=== PATIENT | female | born 1990 | race Caucasian/White ===

== ENCOUNTER → 2016-12-27 | Outpatient (CLI) | payer OTHER | LOC: HEART 5 12-10 09:00 | DX: R00.2 Palpitations (principal) ==

== ENCOUNTER 2021-03-12 05:30 | Inpatient (IN) | payer OTHER ==
[~2021-03-12] VITALS: Ht 162.6 cm; Wt 86.2 kg
[~2021-03-12 05:30] MED LIST: IBUPROFEN600 MG PO; TAMIFLU75 MG PO
[2021-03-12 07:02] LABS: HEMOGLOBIN 7.7 gm/dl (12.3-15.3); RED BLOOD COUNT 3.22 M/UL (4.00-5.10); WHITE BLOOD COUNT 6.3 K/UL (4.5-11.0)
[2021-03-12] MEDS ORDERED: IBUPROFEN600 MG PO (15:45)
[2021-03-12] MEDS ORDERED: DOCUSATE SODIU100 MG PO (15:45)
[2021-03-13] MEDS ORDERED: FERROUS SULFAT325 MG PO (09:59)
== END 2021-03-13 12:02 | disposition home or self-care (01) | DRG 806 ==
LOC: OB 05:30
PROVIDERS: Obstetrics & Gynecology; ADMIT Obstetrics & Gynecology
PROC: 10E0XZZ Delivery of Products of Conception, External Approach (ICD-10-PCS; principal; 2021-03-12)
PROC: 3E033VJ Introduction of Other Hormone into Peripheral Vein, Percutaneous Approach (ICD-10-PCS; 2021-03-12)
PROC: 0HQ9XZZ Repair Perineum Skin, External Approach (ICD-10-PCS; 2021-03-12)
PROC: 10907ZC Drainage of Amniotic Fluid, Therapeutic from Products of Conception, Via Natural or Artificial Opening (ICD-10-PCS; 2021-03-12)
PROC: 4A1HXCZ Monitoring of Products of Conception, Cardiac Rate, External Approach (ICD-10-PCS; 2021-03-12)
DX: O99.02 Anemia complicating childbirth (principal); N13.30 Unspecified hydronephrosis; Z37.0 Single live birth; Z3A.39 39 weeks gestation of pregnancy; O99.344 Other mental disorders complicating childbirth; F32.9 Major depressive disorder, single episode, unspecified; O99.892 Other specified diseases and conditions complicating childbirth; F41.9 Anxiety disorder, unspecified; O69.81X0 Labor and delivery complicated by cord around neck, without compression, not applicable or unspecified; O62.2 Other uterine inertia; Z20.822 Contact with and (suspected) exposure to COVID-19; O70.0 First degree perineal laceration during delivery; O76 Abnormality in fetal heart rate and rhythm complicating labor and delivery
CPT/HCPCS: 36415; 51702; 82800; 85014; 85018; 85025; 90471; 90707; 90715; J2210; J2590; J2795; J7120; U0003